=== PATIENT | male | born 1980 | race Caucasian/White ===

== ENCOUNTER 2019-04-20 16:23 | Emergency (ER) | payer MEDICAID ==
[~2019-04-20] VITALS: Ht 177.8 cm; Wt 92.1 kg
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
--- NOTE | 2019-04-20 17:11 | NUR ---
OFFICER ILDA [id number] AT BEDSIDE
--- NOTE | 2019-04-20 17:43 | NUR ---
Patient discharged to home in stable condition. Written and verbal after care instructions given. Patient verbalizes understanding of instruction.
[2019-04-20 18:23] VITALS: BP 124/76
== END 2019-04-20 17:45 | disposition home or self-care (01) ==
LOC: ER 16:24
DX: S80.211A Abrasion, right knee, initial encounter (principal); M54.2 Cervicalgia; M25.561 Pain in right knee; V49.49XA Driver injured in collision with other motor vehicles in traffic accident, initial encounter; Y93.89 Activity, other specified; Y92.488 Other paved roadways as the place of occurrence of the external cause; Y99.8 Other external cause status
CPT/HCPCS: 73564-TC; 73590-TC